=== PATIENT | female | born 1975 | race Caucasian/White ===

== ENCOUNTER 2025-09-07 10:25 | Emergency (ER) | payer OTHER, SELFPAY ==
[2025-09-07 10:26] VITALS: BP 139/93; PULSE 79; RESP 14; TEMP 36.2; O2SAT 99
--- NOTE | 2025-09-07 10:48 | EKG12_ITS ---
Test Reason : Blood Pressure : */* mmHG Vent. Rate : 60 BPM Atrial Rate : 60 BPM P-R Int : 156 ms QRS Dur : 78 ms QT Int : 420 ms P-R-T Axes : 18 -14 -8 degrees QTcB Int : 420 ms Normal sinus rhythm Anterolateral infarct , age undetermined Abnormal ECG Confirmed by MICHAEL BERNABE MD ([id number]), web editor PINA HERNANDEZ ([id number]) on 09/09/2025 9:08:55 AM Referred By: Confirmed By: MICHAEL BERNABE MD
[2025-09-07] MEDS: 0.9% Normal Saline (1000mL) 1,000 ML 999 ML IV (10:55)
--- NOTE | 2025-09-07 11:06 | EX.ED.UPPERE ---
HPI History of Present Illness Chief Complaint: Upper Extremity Injury Narrative Narrative: Patient is a 49-year-old female with no known significant past medical history who presents to the emergency department with a chief complaint of bilateral arm pain. States that this started last evening while visiting a friend and notes that it was mainly her left arm that was bothering her and then today went to both of her arms. She denies any recent trauma or injuries to her head or neck denies any recent travel history denies any history of blood clots. She states that she has not any fevers or chills. PFSH PFS Home Medications Medication Instructions Recorded Last Taken Type NK 09/07/25 Unknown History Allergy/AdvReac Type Severity Reaction Status Date / Time No Known Allergies Allergy Verified 09/07/25 10:26 Social History Smoking Status: Never smoker ROS ROS ED ROS Narrative Constitutional: Denies any fevers, chills, headaches Eyes: Denies change in vision double vision blurry vision Cardiovascular: Denies chest pain Respiratory: Denies coughing wheezing shortness of breath Abdomen: Denies abdominal pain nausea vomit diarrhea : Denies urinary symptoms Neurological: Denies any numbness, weakness, tingling Musculoskeletal: Complains of bilateral shoulder pain as noted above Skin: Denies any rashes or lesions EXAM Physical Exam Narrative Exam Narrative: General: Patient was lying in bed rest comfortably did not appear to be in acute distress Head: Atraumatic, normocephalic Eyes: PERRL bilaterally, EOMI bilaterally, no conjunctival injection noted Neck: Soft, supple, trachea midline Cardiovascular: Regular rate and rhythm Respiratory: Clear to auscultation bilaterally Abdomen: Soft, nondistended, no tenderness to palpation Musculoskeletal: No tenderness palpation midline of the thoracolumbar spine patient has full range of motion of her bilateral upper extremities without any reproducible of her symptoms Extremities: Radial pulses +2/4 in the bilateral extremities, +5/5 strength noted in the bilateral upper and lower extremities Neurological: Patient following commands knew that she was at [facility] year is 2024. NIH of 0 GCS 15 Skin: Warm, dry, tact no rashes or lesions noted Const Vital Signs: 09/07/25 10:26 09/07/25 10:58 Temperature 97.1 F L Temperature Source Temporal Pulse Rate 79 Respiratory Rate 14 Blood Pressure 139/93 H Blood Pressure Mean 108 Pulse Ox 99 Oxygen Delivery Method Room Air Room Air MDM MDM MDM Narrative Medical decision making narrative: Patient is a 49-year-old female who presents to the emergency department with a chief complaint of bilateral upper extremity pain and rating down her both arms. On the differential diagnose includes but limited to aortic dissection, ACS, PE although low suspicion for this. Once workup is obtained and reviewed she will be reevaluated. Patient's CBC reviewed which showed no evidence leukocytosis white blood count normal at 7.7, hemoglobin 13, platelet count of 431. Patient sodium was 140, potassium normal 4.3, creatinine was 0.72, troponin was less than 6 proBNP normal at 61. Patient's chest x-ray showed no evidence of acute cardiopulmonary processes. Given her workup has been largely unremarkable thus far I added a D-dimer on. Patient is EKG reviewed and showed sinus rhythm with a rate of 60 bpm with [place] interval 156. Patient D-dimer was elevated at 0.53 therefore CTA of the chest was added on. Patient CTA of her chest reviewed showed no acute findings study within normal limits per radiology. Discussed the results with the patient and she would like to go home at this point in time. All question concerns were answered at bedside and significant other at bedside also is agreeable to plan. She is vies follow-up with her doctor in the outpatient setting. Discharge Plan Triage Chief Complaint: Upper Extremity Injury ED Provider: Bravo Hernandez Dx/Rx/DC Orders Clinical Impression: Bilateral arm pain, Encounter for medical screening examination Prescriptions: No Action NK Primary Care Provider: Care Physician,No Primary Referrals: Care Physician,No Primary [Primary Care Provider, Medical] Activity Restrictions/Additional Instructions: Follow-up with your doctor in the outpatient setting. Return with worsening symptoms or any concerns. Your blood work and your CAT scan your chest did not show any acute findings Print Language: Kinyarwanda Disposition Disposition: Home, Self Care
[2025-09-07 11:13] LABS: Hematocrit 40.3 % (37-47); Hemoglobin 13.0 g/dL (12.0-15.0); Immature Granulocytes Count 0.020 X10^3/uL (0.0-0.0); Mean Corp Hgb Conc 32.3 g/dL (32-36); Mean Corpuscular Volume 81.9 fL (81-99); Mean Platelet Vol. 9.0 fl (6.2-12.0); NRBC Flagged by Analyzer 0 % (0-5); Platelet Count 431 K/mm3 (150-450); RBC Distribution Width CV 13.8 % (11.6-14.6); RBC Distribution Width SD 40.7 fl (35.1-43.9); Red Blood Count 4.92 M/mm3 (4.2-5.4); White Blood Count 7.7 K/mm3 (4.4-11.0)
--- NOTE | 2025-09-07 12:00 | RAD_ITS ---
PROCEDURE: CHEST PA AND LATERAL 09/07/2025 REASON FOR EXAM: CHEST PAIN TECHNIQUE: Procedure Code: RADCXR Modality: DX Procedure: CHEST PA AND LATERAL COMPARISON: None available. FINDINGS: The lungs are adequately aerated bilaterally without pleural effusion, pneumothorax, or focal airspace disease. Atheromatous changes of the aorta without cardiomegaly. Mild degenerative changes of the shoulders and spine. RAD/Chest PA and Lateral IMPRESSION: No evidence of acute cardiopulmonary abnormality. Reading Location: [id number]
[2025-09-07 12:06] LABS: Anion Gap 8 (5-15); BUN 13 mg/dL (4-19); BUN/Creat Ratio 17.7 RATIO (10-20); Calcium,Total 9.3 mg/dL (7.6-11.0); Carbon Dioxide 26.9 mmol/L (21.0-32.0); Chloride 105 mmol/L (98-108); Estimated Creatinine Clearance 136.67 ml/min (50-250); Glucose 94 mg/dL (70-99); Potassium 4.3 mmol/L (3.3-5.1); Pro- Brain NATRIURETIC PEPTIDE 61 pg/mL (<=450); Troponin T High Sensitivity < 6 ng/L (<=14)
[2025-09-07 12:54] VITALS: O2SAT 98
[2025-09-07 12:57] LABS: D-Dimer Quantitative (DVT/PE) 0.53 FEU/ug/m (0.27-0.49)
--- NOTE | 2025-09-07 13:06 | CT_ITS ---
PROCEDURE: CTA CHEST W/WO CONTRAST 09/07/2025 REASON FOR EXAM: CHEST PAIN TECHNIQUE: Procedure Code: [id number] Modality: CT Procedure: CTA CHEST W/WO CONTRAST Multiplanar Sagittal and Coronal images were obtained. 3D reconstructions CONTRAST: Isovue 370 VOLUME: 100 mL One or more dose reduction techniques were used (e.g., Automated exposure control, adjustment of the mA and/or kV according to patient size, use of iterative reconstruction technique). RADIATION DOSE SUMMARY: CTDlvol: 25 mGy DLP: 465 mGycm FINDINGS: Normal thoracic aorta. No aneurysm or dissection. Pulmonary arterial contrast bolus adequate. No coronary calcification. No visible pulmonary embolism. Upper abdomen unremarkable. No mediastinal masses. Inspection of the lung parenchyma demonstrates no edema, fibrosis or significant mass nodule. CT/CTA Chest W/WO Contrast IMPRESSION: Study within normal limits Reading [facility]
[2025-09-07 13:48] LABS: Troponin T High Sens 2 HR < 6 ng/L (<=14)
[2025-09-07 14:00] VITALS: O2SAT 98
[2025-09-07 14:46] VITALS: BP 124/78; PULSE 64; RESP 18; TEMP 36.6; O2SAT 99
== END 2025-09-07 14:46 | disposition home or self-care (01) ==
PROVIDERS: Emergency Provider Emergency Medicine; Visit Provider Emergency Medicine
DX: M79.602 Pain in left arm (principal); Z13.9 Encounter for screening, unspecified; M79.601 Pain in right arm
CPT/HCPCS: 71046; 71275; 80048; 83880; 84484; 85025; 85379; 93005; 96360; 99284; Q9967